=== PATIENT | female | born 1995 | race Caucasian/White ===

== ENCOUNTER 2017-01-09 21:24 | Emergency (ER) | payer OTHER | END 2017-01-10 04:20 | disposition home or self-care (01) | LOC: FER 21:24 | DX: O99.512 Diseases of the respiratory system complicating pregnancy, second trimester (principal); J02.9 Acute pharyngitis, unspecified; O99.352 Diseases of the nervous system complicating pregnancy, second trimester; G43.909 Migraine, unspecified, not intractable, without status migrainosus; Z3A.17 17 weeks gestation of pregnancy | CPT/HCPCS: 87450; 99284 ==

== ENCOUNTER 2017-01-12 12:52 | Emergency (ER) | payer OTHER | END 2017-01-12 14:14 | disposition home or self-care (01) | LOC: FER 12:52 | DX: J03.90 Acute tonsillitis, unspecified (principal) | CPT/HCPCS: 87450; 99283 ==

== ENCOUNTER 2017-02-03 02:33 | Emergency (ER) | payer OTHER | END 2017-02-03 03:20 | disposition home or self-care (01) | LOC: FER 02:33 | DX: O99.512 Diseases of the respiratory system complicating pregnancy, second trimester (principal); J32.9 Chronic sinusitis, unspecified; O99.352 Diseases of the nervous system complicating pregnancy, second trimester; H66.92 Otitis media, unspecified, left ear; Z3A.20 20 weeks gestation of pregnancy | CPT/HCPCS: 99283 ==

== ENCOUNTER 2020-10-15 18:47 | Emergency (ER) | payer OTHER ==
[~2020-10-15 18:47] MED LIST: AMOXICILLIN500 MG PO; BACLOFEN 10MG T10 MG PO; BENTYL10 MG PO; IBUPROFEN800 MG PO; METRONIDAZOLE500 MG PO; NAPROXEN500 MG PO; NORCO 5-325 TA1 EACH PO; NORCO 5/3251 EACH PO; TESSALON PERLE100 MG PO; ZOFRAN4 MG PO; ZOFRAN8 MG PO; ZPAK PO
[2020-10-15 21:31] LABS: BILIRUBIN 2+ mg/dL (NEGATIVE); BLOOD NEGATIVE Ery/uL (NEGATIVE); CLARITY HAZY (CLEAR); COLOR YELLOW (YELLOW); GLUCOSE (U) NORMAL (NORMAL); LEUKOCYTES NEGATIVE Leu/uL (NEGATIVE); NITRITE NEGATIVE (NEGATIVE); PROTEIN NEGATIVE (NEGATIVE); SPECIFIC GRAVITY >=1.030 (1.001-1.030); UROBILINOGEN 0.2 mg/dL (0.2-1.0); pH 5.5 (5.0-9.0)
[2020-10-15 22:03] LABS: BASOPHIL 0.6 % (0-2); EOSINOPHIL 2.5 % (0-5); HCT 41.8 % (37.0-47.0); HGB 14.3 g/dl (12.5-16.0); LYMPHOCYTE 33.1 % (15-48); MCH 35.3 pg (25.0-31.0); MCHC 34.2 g/dL (32.0-36.0); MCV 103.2 fL (78.0-100.0); MONOCYTE 5.4 % (0-12); MPV 10.8 fL (6.0-9.5); NEUTROPHIL 57.9 % (41-80); NRBC 0; PLT 217 K/uL (150-400); RBC 4.05 M/uL (4.20-5.40); RDW 12.6 % (11.5-14.0); WBC 8.3 K/uL (4.0-10.5)
[2020-10-15 22:18] LABS: ALBUMIN 4.1 g/dL (3.4-5.0); BILIRUBIN - TOTAL 1.6 mg/dL (0.2-1.0); BUN/CREAT RATIO (CALC) 12.3 RATIO; CREATININE 0.65 mg/dL (0.51-0.95); GLOBULIN (CALCULATION) 4.1 g/dL; POTASSIUM 3.9 mmol/L (3.5-5.1); TOTAL PROTEIN 8.2 g/dL (6.4-8.2)
[2020-10-16] MEDS ORDERED: DICLOFENAC SODI75 MG PO
== END 2020-10-16 00:10 | disposition home or self-care (01) ==
LOC: FER 18:47
PROVIDERS: Physician Assistant
DX: S39.012A Strain of muscle, fascia and tendon of lower back, initial encounter (principal); R10.31 Right lower quadrant pain; F17.210 Nicotine dependence, cigarettes, uncomplicated; X50.9XXA Other and unspecified overexertion or strenuous movements or postures, initial encounter; Y92.89 Other specified places as the place of occurrence of the external cause; Y99.0 Civilian activity done for income or pay
CPT/HCPCS: 36415; 72110; 80053; 81003; 83690; 85025; J1885; J7030; Q9967

== ENCOUNTER 2020-10-21 21:27 | Emergency (ER) | payer OTHER ==
[~2020-10-21 21:27] MED LIST changes: +DICLOFENAC SODI75 MG PO
[2020-10-21] MEDS ORDERED: XANAX1 MG PO (23:42)
== END 2020-10-22 00:05 | disposition home or self-care (01) ==
LOC: FER 21:27
DX: F41.0 Panic disorder [episodic paroxysmal anxiety] (principal); F17.210 Nicotine dependence, cigarettes, uncomplicated
CPT/HCPCS: 93005

== ENCOUNTER 2020-11-17 18:18 | Emergency (ER) | payer OTHER ==
[~2020-11-17 18:18] MED LIST changes: +XANAX1 MG PO
== END 2020-11-17 19:19 | disposition left against medical advice (07) ==
LOC: FER 18:18
DX: Z53.8 Procedure and treatment not carried out for other reasons (principal)

== ENCOUNTER 2022-01-20 15:57 | Emergency (ER) | payer OTHER ==
[2022-01-20 19:44] LABS: BILIRUBIN NEGATIVE (NEGATIVE); BLOOD 1+ Ery/uL (NEGATIVE); CLARITY CLEAR (CLEAR); COLOR YELLOW (YELLOW); GLUCOSE (U) NORMAL (NORMAL); LEUKOCYTES NEGATIVE Leu/uL (NEGATIVE); NITRITE NEGATIVE (NEGATIVE); PROTEIN NEGATIVE (NEGATIVE); UROBILINOGEN 0.2 mg/dL (0.2-1.0)
[2022-01-20 19:54] LABS: BACTERIA TRACE
[2022-01-20 20:36] LABS: BASOPHIL 0.7 % (0-2); EOSINOPHIL 2.3 % (0-5); HCT 43.3 % (37.0-47.0); HGB 14.3 g/dl (12.5-16.0); LYMPHOCYTE 35.7 % (15-48); MCH 33.3 pg (25.0-31.0); MCV 100.9 fL (78.0-100.0); MONOCYTE 5.2 % (0-12); MPV 9.6 fL (6.0-9.5); NEUTROPHIL 55.2 % (41-80); NRBC 0; PLT 331 K/uL (150-400); RBC 4.29 M/uL (4.20-5.40); RDW 12.1 % (11.5-14.0); WBC 7.7 K/uL (4.0-10.5)
[2022-01-20 20:52] LABS: BUN/CREAT RATIO (CALC) 13.5 RATIO; CREATININE 0.74 mg/dL (0.51-0.95); POTASSIUM 4.2 mmol/L (3.5-5.1)
[2022-01-20] MEDS ORDERED: MOTRIN600 MG PO (22:11)
== END 2022-01-20 22:17 | disposition home or self-care (01) ==
LOC: FER 15:57
PROVIDERS: Physician Assistant
DX: N93.8 Other specified abnormal uterine and vaginal bleeding (principal); F17.210 Nicotine dependence, cigarettes, uncomplicated; Z28.310 Unvaccinated for COVID-19
CPT/HCPCS: 36415; 76856; 80048; 81001; 85025; J1885